=== PATIENT | female | born 1985 | race Caucasian/White ===

== ENCOUNTER 2017-11-14 08:29 | Inpatient (IN) | payer BC ==
[2017-11-14] MEDS ORDERED: Nalbuphine 20 MG/ML 1 ML Syringe IVPUSH PRN (08:52)
[2017-11-14] MEDS ORDERED: Ondansetron 4 MG/2 ML SDV IVPUSH PRN (08:52)
[2017-11-14] MEDS ORDERED: Sodium Chloride 0.9% 10 ML Syringe FLUSH PRN (08:52)
--- NOTE | 2017-11-14 08:54 | PCM.LDHP ---
L&D History of Present Illness - General Date of Service: 11/14/17 Admit Problem/Dx: Patient Status Order with Admit Dx/Problem 11/14/17 08:52 Patient Status [ADT] Routine Admission Diagnosis/Problem Admission Diagnosis/Problem Normal labor Source of Information: Patient History Limitations: Reports: No Limitations - History of Present Illness Introduction:: Patient is a 32 y/o at 39 2/7 wks who presents today in labor. Was seen last night for a labor check, but only 3 cm on serial assessments. Reports contractions picked up last night. When presented to L&D this AM was 4- 5 cm. Otherwise doing well. - Related Data Allergies/Adverse Reactions: Allergies Allergy/AdvReac Type Severity Reaction Status Date / Time amoxicillin Allergy Rash Verified 11/13/17 22:08 Home Medications: Home Meds Albuterol [Proventil HFA] 2 puff INH ASDIRECTED PRN 11/13/17 [History] Ferrous Sulfate [Iron] 325 mg PO ASDIRECTED 11/13/17 [History] Fluticasone/Salmeterol [Advair 250-50 Diskus] 1 each IH DAILY 11/13/17 [History] Loratadine [Claritin] 10 mg PO DAILY 11/13/17 [History] Omeprazole 20 mg PO DAILY 11/13/17 [History] Pnv No.95/Ferrous Fum/Folic AC [ Multivitamin Tablet] 1 each PO DAILY [History] Sertraline [Zoloft] 100 mg PO DAILY 11/13/17 [History] Past Medical History Respiratory History: Reports: Asthma (exercise induced) 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 (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): Psychiatric History: Reports: Depression - Past Surgical History HEENT Surgical History: Reports: Naso-Sinus Surgery Social & Family History - Tobacco Use Smoking Status *Q: Never Smoker - Alcohol Use Alcohol Use History: No - Recreational Drug Use Recreational Drug Use: No H&P Review of Systems - Review of Systems: Review Of Systems: See Below General: Reports: No Symptoms Pulmonary: Reports: No Symptoms Cardiovascular: Reports: No Symptoms Gastrointestinal: Reports: No Symptoms Genitourinary: Reports: No Symptoms Musculoskeletal: Reports: No Symptoms Psychiatric: Reports: No Symptoms Neurological: Reports: No Symptoms L&D Exam - Exam Exam: See Below - Vital Signs Weight: 117.934 kg - OB Specific Contraction Intensity: Moderate to Strong Movement: Active Heart Tones: Present Heart Tones per Min: 130 Heart Rate (FHR) Variability: Moderate (6-25 bmp) Presentation: Vertex - Cornejo Score Cornejo Score Cervix Position: Midposition Cornejo Score Consistency: Soft Cornejo Score Effacement: 51-70% Cornejo Score Dilation: 3-4 cm Cornejo Score 's Station: -2 Cornejo Score Total: 8 - Exam General: Alert, Oriented, Sedated Lungs: Clear to Auscultation, Normal Respiratory Effort Cardiovascular: Regular Rate, Regular Rhythm GI/Abdominal Exam: Soft, Non-Tender Genitourinary: Normal external exam Back Exam: Normal Inspection Extremities: Normal Inspection Skin: Warm, Dry, Intact - Patient Data Result Diagrams: 11/14/17 09:05 - Problem List (1) 39 weeks gestation of SNOMED Code(s): 78178289 ICD Code: Z3A.39 - 39 WEEKS GESTATION OF Status: Acute Current Visit: Yes (2) Normal labor SNOMED Code(s): 66493666 ICD Code: O80 - ENCOUNTER FOR FULL-TERM UNCOMPLICATED DELIVERY; Z37.9 - OUTCOME OF DELIVERY, UNSPECIFIED Status: Acute Current Visit: Yes (3) GBS (group B Streptococcus carrier), +RV culture, currently SNOMED Code(s): 4182168290965, 272782837, 4284810329166 ICD Code: O99.820 - STREPTOCOCCUS B CARRIER STATE COMPLICATING Status: Acute Current Visit: Yes (4) Depression SNOMED Code(s): 39658941 ICD Code: F32.9 - MAJOR DEPRESSIVE DISORDER, SINGLE EPISODE, UNSPECIFIED Status: Acute Current Visit: Yes Qualifiers: Major depression recurrence: single episode Active/Remission status: currently active Problem List Initiated/Reviewed/Updated: Yes Orders Last 24hrs: Active Orders 24 hr Category Date Time Status Patient Status [ADT] Routine ADT 11/14/17 08:52 Ordered Activity as Tolerated [RC] PFP Care 11/14/17 08:52 Ordered Communication Order [RC] ASDIRECTED Care 11/14/17 08:52 Ordered Heart Tones [RC] ASDIRECTED Care 11/14/17 08:53 Ordered Notify Provider [RC] PFP Care 11/14/17 08:52 Ordered Notify Provider [RC] PRN Care 11/14/17 08:52 Ordered Peripheral IV Care [RC] . DIRECTED Care 11/14/17 08:53 Ordered Vital Signs [RC] PER UNIT ROUTINE Care 11/14/17 08:52 Ordered Regular Diet [DIET] Diet 11/14/17 Breakfast Ordered CBC W/O DIFF,HEMOGRAM [HEME] Stat Lab 11/14/17 08:52 Ordered RAPID PLASMA REAGIN,RPR [CHEM] Stat Lab 11/14/17 08:52 Ordered TYPE AND SCREEN [BBK] Stat Lab 11/14/17 08:52 Ordered Lactated Ringers [Ringers, Lactated] 1,000 ml Med 11/14/17 09:00 Ordered IV ASDIRECTED Nalbuphine [Nubain] Med 11/14/17 08:52 Ordered 10 mg IVPUSH Q2H PRN Ondansetron [Zofran] Med 11/14/17 08:52 Ordered 4 mg IVPUSH Q4H PRN Oxytocin/Lactated Ringers [Pitocin in LR 10 Units/1,000 Med 11/14/17 09:00 Ordered ML] 10 unit in 1,000 ml IV .CONTINUOUS Sodium Chloride 0.9% [Saline Flush] Med 11/14/17 08:52 Ordered 10 ml FLUSH ASDIRECTED PRN ceFAZolin [Ancef] 1 gm Med 11/14/17 14:00 Ordered Premix Bag 1 bag IV Q8HR ceFAZolin [Ancef] 2 gm Med 11/14/17 08:52 Ordered Premix Bag 1 bag IV ONETIME Electronic Heart Tones Ext w TOCO [WOMSER] Oth 11/14/17 08:52 Ordered Routine Electronic Heart Tones Internal [WOMSER] Per Unit Oth 11/14/17 08:52 Ordered Routine Peripheral IV Insertion Adult [OM.PC] Routine Oth 11/14/17 08:52 Ordered Resuscitation Status Routine Resus Stat 11/14/17 08:52 Ordered Assessment/Plan Comment:: 32 y/o at 39 2/7 wks who presents in labor * CBC, T&S, RPR * GBS positive, will start Ancef for prophylaxis * Pain management per patient preference * Anticipate
[2017-11-14] MEDS ORDERED: ceFAZolin 2 GM in Premix Bag 1 BAG IV ONE (09:00)
[2017-11-14] MEDS ORDERED: Lactated Ringers 1,000 ML IV SCH (09:00)
[2017-11-14] MEDS ORDERED: Oxytocin/Lactated Ringers 10 UNIT/1,000 ML BAG IV SCH (09:00)
[2017-11-14] MEDS ORDERED: Lidocaine 1% 20 ML MDV INJECT ONE (16:40)
[2017-11-14] MEDS ORDERED: Lidocaine 1% 50 ML MDV ONE (16:40)
[2017-11-14] MEDS ORDERED: ceFAZolin 1 GM in Premix Bag 1 BAG IV SCH (17:00)
--- NOTE | 2017-11-14 17:03 | PCM.LDHP ---
L&D History of Present Illness - General Date of Service: 11/14/17 Admit Problem/Dx: Patient Status Order with Admit Dx/Problem - Related Data Allergies/Adverse Reactions: Allergies Allergy/AdvReac Type Severity Reaction Status Date / Time amoxicillin Allergy Rash Verified 11/13/17 22:08 Home Medications: Home Meds Albuterol [Proventil HFA] 2 puff INH ASDIRECTED PRN 11/13/17 [History] Ferrous Sulfate [Iron] 325 mg PO ASDIRECTED 11/13/17 [History] Fluticasone/Salmeterol [Advair 250-50 Diskus] 1 each IH DAILY 11/13/17 [History] Loratadine [Claritin] 10 mg PO DAILY 11/13/17 [History] Omeprazole 20 mg PO DAILY 11/13/17 [History] Pnv No.95/Ferrous Fum/Folic AC [ Multivitamin Tablet] 1 each PO DAILY [History] Sertraline [Zoloft] 100 mg PO DAILY 11/13/17 [History] Past Medical History HEENT History: Reports: Allergic Rhinitis, Sinusitis Respiratory History: Reports: Asthma (exercise induced) [employer]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: Psychiatric History: Reports: Depression - Past Surgical History HEENT Surgical History: Reports: Naso-Sinus Surgery Social & Family History - Family History Cardiac: Reports: Hypertension Musculoskeletal: Reports: Arthritis Endocrine/Metabolic: Reports: Diabetes, type II Hematologic: Reports: None Immunologic: Reports: None Dermatologic: Reports: None Oncologic: Reports: Breast - Tobacco Use Smoking Status *Q: Never Smoker Second Hand Smoke Exposure: No - Caffeine Use Caffeine Use: Reports: None - Recreational Drug Use Recreational Drug Use: No L&D Exam - Vital Signs Vital Signs: Last Vital Signs Temp Pulse 83 11/14/17 09:02 Resp BP Pulse Ox 98 11/14/17 08:42 Weight: 117.934 kg - OB Specific Contraction Intensity: Moderate to Strong Movement: Active Heart Tones: Present Heart Tones per Min: 130 Heart Rate (FHR) Variability: Moderate (6-25 bmp) Presentation: Vertex - Cornejo Score Cornejo Score Cervix Position: Midposition Cornejo Score Consistency: Soft Cornejo Score Effacement: 51-70% Cornejo Score Dilation: 3-4 cm Cornejo Score 's Station: -2 Cornejo Score Total: 8 - Patient Data Lab Results Last 24 hrs: Laboratory Results - last 24 hr 11/14/17 11/14/17 11/14/17 Range/Units 09:05 09:05 09:05 WBC 13.37 H (3.98-10.04) K/mm3 RBC 5.11 (3.98-5.22) M/mm3 Hgb 13.3 (11.2-15.7) gm/L Hct 40.3 (34.1-44.9) % MCV 78.9 L (79.4-94.8) fl MCH 26.0 (25.6-32.2) pg MCHC 33.0 (32.2-35.5) g/dl RDW Std Deviation 43.4 (36.4-46.3) fL Plt Count 417 H (182-369) K/mm3 MPV 9.7 (9.4-12.3) fl RPR Non-reactive (NONREACTIVE) Blood Type O POSITIVE Gel Antibody Screen Negative Result Diagrams: 11/14/17 09:05 - Problem List (1) 39 weeks gestation of SNOMED Code(s): 71696358 ICD Code: Z3A.39 - 39 WEEKS GESTATION OF Status: Acute Current Visit: Yes (2) Normal labor SNOMED Code(s): 04049486 ICD Code: O80 - ENCOUNTER FOR FULL-TERM UNCOMPLICATED DELIVERY; Z37.9 - OUTCOME OF DELIVERY, UNSPECIFIED Status: Acute Current Visit: Yes (3) GBS (group B Streptococcus carrier), +RV culture, currently SNOMED Code(s): 4787015353296, 727167794, 4484927580373 ICD Code: O99.820 - STREPTOCOCCUS B CARRIER STATE COMPLICATING Status: Acute Current Visit: Yes (4) Depression SNOMED Code(s): 81291624 ICD Code: F32.9 - MAJOR DEPRESSIVE DISORDER, SINGLE EPISODE, UNSPECIFIED Status: Acute Current Visit: Yes Qualifiers: Major depression recurrence: single episode Active/Remission status: currently active Orders Last 24hrs: Active Orders 24 hr Category Date Time Status Patient Status Manage Transfer [TRANSFER] Routine ADT 11/14/17 17:00 Ordered Patient Status [ADT] Routine ADT 11/14/17 08:52 Active Activity as Tolerated [RC] PFP Care 11/14/17 08:52 Active Communication Order [RC] ASDIRECTED Care 11/14/17 08:52 Active Heart Tones [RC] ASDIRECTED Care 11/14/17 08:53 Active Notify Provider [RC] PFP Care 11/14/17 08:52 Active Notify Provider [RC] PRN Care 11/14/17 08:52 Active Peripheral IV Care [RC] . DIRECTED Care 11/14/17 08:53 Active Vital Signs [RC] PER UNIT ROUTINE Care 11/14/17 08:52 Active Regular Diet [DIET] Diet 11/14/17 Breakfast Active PATIENT RETYPE [BBK] Stat Lab 11/14/17 09:05 Results TYPE AND SCREEN [BBK] Stat Lab 11/14/17 09:05 Results Lactated Ringers [Ringers, Lactated] 1,000 ml Med 11/14/17 09:00 Active IV ASDIRECTED Lidocaine 1% [Xylocaine 1%] Med 11/14/17 16:40 Once 50 ml INJECT ONETIME ONE Nalbuphine [Nubain] Med 11/14/17 08:52 Active 10 mg IVPUSH Q2H PRN Ondansetron [Zofran] Med 11/14/17 08:52 Active 4 mg IVPUSH Q4H PRN Oxytocin/Lactated Ringers [Pitocin in LR 10 Units/1,000 Med 11/14/17 09:00 Active ML] 10 unit in 1,000 ml IV .CONTINUOUS Pneumococcal Polyvalent-23 Vac [Pneumovax 23] Med 11/15/17 12:00 Once 0.5 ml SUBCUT .ONCE ONE Sertraline Med 11/15/17 09:00 Ordered 150 mg PO DAILY Sodium Chloride 0.9% [Saline Flush] Med 11/14/17 08:52 Active 10 ml FLUSH ASDIRECTED PRN ceFAZolin [Ancef] 1 gm Med 11/14/17 17:00 Active Premix Bag 1 bag IV Q8H Electronic Heart Tones Ext w TOCO [WOMSER] Oth 11/14/17 08:52 Ordered Routine Electronic Heart Tones Internal [WOMSER] Per Unit Oth 11/14/17 08:52 Ordered Routine Peripheral IV Insertion Adult [OM.PC] Routine Oth 11/14/17 08:52 Ordered Resuscitation Status Routine Resus Stat 11/14/17 08:52 Ordered Medication Orders Cefazolin Sodium/Dextrose 1 gm (/ Premix) 50 mls @ 100 mls/hr IV Q8H [facility] Lactated Ringer's (Ringers, Lactated) 1,000 mls @ 100 mls/hr IV ASDIRECTED [facility] Last Admin: 11/14/17 09:05 Dose: 100 mls/hr Oxytocin/Lactated Ringer's (Pitocin In Lr 10 Units/1,000 Ml) 10 unit in 1,000 mls @ 500 mls/hr IV .CONTINUOUS [facility] Lidocaine HCl (Xylocaine 1%) 50 ml INJECT ONETIME ONE Stop: 11/14/17 16:41 Nalbuphine HCl (Nubain) 10 mg IVPUSH Q2H PRN PRN Reason: Pain (moderate 4-6) Last Admin: 11/14/17 11:50 Dose: 10 mg Non-Formulary Medication (Sertraline) 150 mg PO DAILY [facility] Ondansetron HCl (Zofran) 4 mg IVPUSH Q4H PRN PRN Reason: Nausea/Vomiting Pneumococcal Polyvalent Vaccine (Pneumovax 23) 0.5 ml SUBCUT .ONCE ONE Stop: 11/15/17 12:01 Sodium Chloride (Saline Flush) 10 ml FLUSH ASDIRECTED PRN PRN Reason: Keep Vein Open Assessment/Plan Comment:: 32 y/o at 39 2/7 wks who presents in labor * CBC, T&S, RPR * GBS positive, will start Ancef for prophylaxis * Pain management per patient preference * Anticipate
--- NOTE | 2017-11-14 17:12 | PCM.DEL ---
L & D Note - General Info Date of Service: 11/14/17 - Delivery Note Labor: Spontaneous Delivery Outcome: Livebirth Delivery Method: Spontaneous Vaginal Delivery-Single Delivery Mode: Spontaneous Presentation: Right Occiput Anterior (DORIAN) Nuchal Cord: Present Anesthesia Type: None Amniotic Fluid Description: Clear Episiotomy Type: None Laceration: 2nd Degree Suture type: Vicryl Suture size: 3-0 Placenta: Intact, Spontaneous Cord: 3 Vessels Estimated Blood Loss: 300 Score 1 min: 7 Score 5 min: 9 Delivery Comments (Free Text/Narrative):: Patient found to be complete and began pushing. With maternal pushing effort head delivered from an DORIAN presentation. Nuchal cord present, but not reduced as delivered quickly. With gentle downward traction the shoulders and body delivered. placed on maternal abdomen. Cord clamped and cut. Cord blood obtained. Placenta allowed time to separate and expelled intact. Inspection of the perineum showed a 2nd degree laceration which was repaired with a 3-0 vicryl. - General Info Date of Service: 11/14/17 - Patient Data Vitals - Most Recent: Last Vital Signs Temp Pulse 83 11/14/17 09:02 Resp BP Pulse Ox 98 11/14/17 08:42 Weight - Most Recent: 117.934 kg I&O - Last 24 Hours: Intake & Output 11/14/17 11/14/17 11/14/17 06:59 14:59 22:59 Intake Total 600 Balance 600 Lab Results Last 24 Hours: Laboratory Results - last 24 hr 11/14/17 11/14/17 11/14/17 Range/Units 09:05 09:05 09:05 WBC 13.37 H (3.98-10.04) K/mm3 RBC 5.11 (3.98-5.22) M/mm3 Hgb 13.3 (11.2-15.7) gm/L Hct 40.3 (34.1-44.9) % MCV 78.9 L (79.4-94.8) fl MCH 26.0 (25.6-32.2) pg MCHC 33.0 (32.2-35.5) g/dl RDW Std Deviation 43.4 (36.4-46.3) fL Plt Count 417 H (182-369) K/mm3 MPV 9.7 (9.4-12.3) fl RPR Non-reactive (NONREACTIVE) Blood Type O POSITIVE Gel Antibody Screen Negative Med Orders - Current: Current Medications Cefazolin Sodium/Dextrose 1 gm (/ Premix) 50 mls @ 100 mls/hr IV Q8H [facility] Lactated Ringer's (Ringers, Lactated) 1,000 mls @ 100 mls/hr IV ASDIRECTED [facility] Last Admin: 11/14/17 09:05 Dose: 100 mls/hr Oxytocin/Lactated Ringer's (Pitocin In Lr 10 Units/1,000 Ml) 10 unit in 1,000 mls @ 500 mls/hr IV .CONTINUOUS [facility] Nalbuphine HCl (Nubain) 10 mg IVPUSH Q2H PRN PRN Reason: Pain (moderate 4-6) Last Admin: 11/14/17 11:50 Dose: 10 mg Non-Formulary Medication (Sertraline) 150 mg PO DAILY [facility] Ondansetron HCl (Zofran) 4 mg IVPUSH Q4H PRN PRN Reason: Nausea/Vomiting Pneumococcal Polyvalent Vaccine (Pneumovax 23) 0.5 ml SUBCUT .ONCE ONE Stop: 11/15/17 12:01 Sodium Chloride (Saline Flush) 10 ml FLUSH ASDIRECTED PRN PRN Reason: Keep Vein Open Discontinued Medications Cefazolin Sodium/Dextrose 2 gm (/ Premix) 50 mls @ 100 mls/hr IV ONETIME ONE Stop: 11/14/17 09:29 Last Admin: 11/14/17 09:24 Dose: 100 mls/hr Lidocaine HCl (Xylocaine 1%) Confirm Administered Dose 50 ml .ROUTE .STK-MED ONE Stop: 11/14/17 16:41 Lidocaine HCl (Xylocaine 1%) 50 ml INJECT ONETIME ONE Stop: 11/14/17 16:41 - Problem List & Annotations (1) 39 weeks gestation of SNOMED Code(s): 25327412 Code(s): Z3A.39 - 39 WEEKS GESTATION OF Status: Acute Current Visit: Yes (2) Normal labor SNOMED Code(s): 64429444 Code(s): O80 - ENCOUNTER FOR FULL-TERM UNCOMPLICATED DELIVERY; Z37.9 - OUTCOME OF DELIVERY, UNSPECIFIED Status: Acute Current Visit: Yes (3) GBS (group B Streptococcus carrier), +RV culture, currently SNOMED Code(s): 6236982129824, 170002016, 9682508330842 Code(s): O99.820 - STREPTOCOCCUS B CARRIER STATE COMPLICATING Status: Acute Current Visit: Yes (4) Depression SNOMED Code(s): 69884912 Code(s): F32.9 - MAJOR DEPRESSIVE DISORDER, SINGLE EPISODE, UNSPECIFIED Status: Acute Current Visit: Yes Qualifiers: Major depression recurrence: single episode Active/Remission status: currently active (5) Vaginal delivery SNOMED Code(s): 288843245 Code(s): O80 - ENCOUNTER FOR FULL-TERM UNCOMPLICATED DELIVERY Status: Acute Current Visit: Yes - Problem List Review Problem List Initiated/Reviewed/Updated: Yes - My Orders Last 24 Hours: My Active Orders 11/14/17 08:52 Patient Status [ADT] Routine Activity as Tolerated [RC] PFP Communication Order [RC] ASDIRECTED Notify Provider [RC] PFP Notify Provider [RC] PRN Vital Signs [RC] PER UNIT ROUTINE Nalbuphine [Nubain] 10 mg IVPUSH Q2H PRN Ondansetron [Zofran] 4 mg IVPUSH Q4H PRN Sodium Chloride 0.9% [Saline Flush] 10 ml FLUSH ASDIRECTED PRN Electronic Heart Tones Ext w TOCO [WOMSER] Routine Electronic Heart Tones Internal [WOMSER] Per Unit Routine Peripheral IV Insertion Adult [OM.PC] Routine Resuscitation Status Routine 11/14/17 08:53 Heart Tones [RC] ASDIRECTED Peripheral IV Care [RC] . DIRECTED 11/14/17 09:00 Lactated Ringers [Ringers, Lactated] 1,000 ml IV ASDIRECTED Oxytocin/Lactated Ringers [Pitocin in LR 10 Units/1,000 ML] 10 unit in 1,000 ml IV .CONTINUOUS 11/14/17 09:05 PATIENT RETYPE [BBK] Stat TYPE AND SCREEN [BBK] Stat 11/14/17 17:00 Patient Status Manage Transfer [TRANSFER] Routine ceFAZolin [Ancef] 1 gm Premix Bag 1 bag IV Q8H 11/14/17 Breakfast Regular Diet [DIET] 11/15/17 09:00 Sertraline 150 mg PO DAILY 06/28/18 12:00 Pneumococcal Polyvalent-23 Vac [Pneumovax 23] 0.5 ml SUBCUT .ONCE ONE - Assessment Assessment:: 32 y/o G2 now P2002 PPD#0 from at 39 2/7 wks - Plan Plan:: * Routine cares * Encourage breast feeding * Discharge home in 1-2 days
[2017-11-14] MEDS ORDERED: Witch Hazel Medicated Pads 100/Jar TOP PRN (17:26)
[2017-11-14] MEDS ORDERED: Ibuprofen 600 MG Tab PO PRN (17:26)
[2017-11-14] MEDS ORDERED: Acetaminophen 325 MG Tab PO PRN (17:26)
[2017-11-14] MEDS ORDERED: Lanolin 100% Cream 7 GM Tube TOP PRN (17:26)
[2017-11-14] MEDS ORDERED: Benzocaine/Menthol 20%-0.5% Spray 56 GM Canister TOP PRN (17:26)
[2017-11-14] MEDS: Docusate Sodium 100 MG Cap PO PRN (18:38)
--- NOTE | 2017-11-15 07:39 | PCM.PNPP ---
- General Info Date of Service: 11/15/17 Functional Status: Reports: Pain Controlled, Tolerating Diet, Ambulating, Urinating - Review of Systems General: Reports: No Symptoms Pulmonary: Reports: No Symptoms Cardiovascular: Reports: No Symptoms Gastrointestinal: Reports: No Symptoms Genitourinary: Reports: No Symptoms Musculoskeletal: Reports: No Symptoms Neurological: Reports: No Symptoms - Patient Data Vital Signs - Most Recent: Last Vital Signs Temp 36.4 C 11/15/17 02:33 Pulse 80 11/15/17 02:33 Resp 15 11/15/17 02:33 BP 121/68 11/15/17 02:33 Pulse Ox 99 11/15/17 02:33 Weight - Most Recent: 117.934 kg I&O - Last 24 Hours: Intake & Output 11/14/17 11/15/17 11/15/17 22:59 06:59 14:59 Intake Total 700 Balance 700 Lab Results - Last 24 Hours: Laboratory Results - last 24 hr 11/14/17 11/14/17 11/14/17 Range/Units 09:05 09:05 09:05 WBC 13.37 H (3.98-10.04) K/mm3 RBC 5.11 (3.98-5.22) M/mm3 Hgb 13.3 (11.2-15.7) gm/L Hct 40.3 (34.1-44.9) % MCV 78.9 L (79.4-94.8) fl MCH 26.0 (25.6-32.2) pg MCHC 33.0 (32.2-35.5) g/dl RDW Std Deviation 43.4 (36.4-46.3) fL Plt Count 417 H (182-369) K/mm3 MPV 9.7 (9.4-12.3) fl RPR Non-reactive (NONREACTIVE) Blood Type O POSITIVE Gel Antibody Screen Negative Med Orders - Current: Current Medications Acetaminophen (Tylenol) 650 mg PO Q4H PRN PRN Reason: mild pain or fever Benzocaine/Menthol (Dermoplast Pain Relief [place]) 0 gm TOP ASDIRECTED PRN PRN Reason: Perineal Comfort Measure Last Admin: 11/14/17 18:38 Dose: 1 can Docusate Sodium (Colace) 100 mg PO BID PRN PRN Reason: Constipation Last Admin: 11/14/17 18:38 Dose: 100 mg Emollient Ointment (Lansinoh Hpa) 0 gm TOP ASDIRECTED PRN PRN Reason: Sore Nipples Ibuprofen (Motrin) 600 mg PO Q6H PRN PRN Reason: Mild pain or fever Last Admin: 11/14/17 18:38 Dose: 600 mg Sertraline HCl (Zoloft) 150 mg PO DAILY [facility] (Tucks) 1 pad TOP ASDIRECTED PRN PRN Reason: Hemorrhoid pain Last Admin: 11/14/17 18:37 Dose: 1 canister Discontinued Medications Cefazolin Sodium/Dextrose 2 gm (/ Premix) 50 mls @ 100 mls/hr IV ONETIME ONE Stop: 11/14/17 09:29 Last Admin: 11/14/17 09:24 Dose: 100 mls/hr Cefazolin Sodium/Dextrose 1 gm (/ Premix) 50 mls @ 100 mls/hr IV Q8H [facility] Last Admin: 11/14/17 17:07 Dose: Not Given Lactated Ringer's (Ringers, Lactated) 1,000 mls @ 100 mls/hr IV ASDIRECTED [facility] Last Admin: 11/14/17 09:05 Dose: 100 mls/hr Oxytocin/Lactated Ringer's (Pitocin In Lr 10 Units/1,000 Ml) 10 unit in 1,000 mls @ 500 mls/hr IV .CONTINUOUS [facility] Last Admin: 11/14/17 16:43 Dose: 500 mls/hr Lidocaine HCl (Xylocaine 1%) Confirm Administered Dose 50 ml .ROUTE .STK-MED ONE Stop: 11/14/17 16:41 Last Admin: 11/14/17 17:06 Dose: 15 ml Lidocaine HCl (Xylocaine 1%) 50 ml INJECT ONETIME ONE Stop: 11/14/17 16:41 Last Admin: 11/14/17 17:27 Dose: Not Given Nalbuphine HCl (Nubain) 10 mg IVPUSH Q2H PRN PRN Reason: Pain (moderate 4-6) Last Admin: 11/14/17 11:50 Dose: 10 mg Ondansetron HCl (Zofran) 4 mg IVPUSH Q4H PRN PRN Reason: Nausea/Vomiting Pneumococcal Polyvalent Vaccine (Pneumovax 23) 0.5 ml SUBCUT .ONCE ONE Stop: 11/15/17 12:01 Sodium Chloride (Saline Flush) 10 ml FLUSH ASDIRECTED PRN PRN Reason: Keep Vein Open - Infant Interaction Disposition, : [place] in Room with Family Infant Interaction: Holding Infant Feeding: Breastfed ; Nursed Well Support Person: - Recovery Exam Fundal Tone: Firm Fundal Level: At Umbilicus Fundal Placement: Midline Lochia Amount: Small Lochia Color: Rubra/Red Bladder Status: Voiding Urinary Elimination: Voided - Exam General: Alert, Oriented, Cooperative GI/Abdominal Exam: Soft, Non-Tender Extremities: Normal Inspection Skin: Warm, Dry, Intact - Problem List & Annotations (1) 39 weeks gestation of SNOMED Code(s): 74242665 Code(s): Z3A.39 - 39 WEEKS GESTATION OF Status: Acute Current Visit: Yes (2) Normal labor SNOMED Code(s): 57604886 Code(s): O80 - ENCOUNTER FOR FULL-TERM UNCOMPLICATED DELIVERY; Z37.9 - OUTCOME OF DELIVERY, UNSPECIFIED Status: Acute Current Visit: Yes (3) GBS (group B Streptococcus carrier), +RV culture, currently SNOMED Code(s): 7627241404157, 315889812, 3977769632143 Code(s): O99.820 - STREPTOCOCCUS B CARRIER STATE COMPLICATING Status: Acute Current Visit: Yes (4) Depression SNOMED Code(s): 33495624 Code(s): F32.9 - MAJOR DEPRESSIVE DISORDER, SINGLE EPISODE, UNSPECIFIED Status: Acute Current Visit: Yes Qualifiers: Major depression recurrence: single episode Active/Remission status: currently active (5) Vaginal delivery SNOMED Code(s): 804400195 Code(s): O80 - ENCOUNTER FOR FULL-TERM UNCOMPLICATED DELIVERY Status: Acute Current Visit: Yes - Problem List Review Problem List Initiated/Reviewed/Updated: Yes - My Orders Last 24 Hours: My Active Orders 11/14/17 08:52 Vital Signs [RC] PER UNIT ROUTINE Resuscitation Status Routine 11/14/17 17:26 Activity as Tolerated [RC] PER UNIT ROUTINE Vital Signs [RC] 03,09,15,21 Acetaminophen [Tylenol] 650 mg PO Q4H PRN Benzocaine/Menthol [Dermoplast Pain Relief [place]] See Dose Instructions TOP ASDIRECTED PRN Docusate Sodium [Colace] 100 mg PO BID PRN Ibuprofen [Motrin] 600 mg PO Q6H PRN Lanolin [Lansinoh HPA] See Dose Instructions TOP ASDIRECTED PRN [place] [Tucks] 1 pad TOP ASDIRECTED PRN Assess Lochia [WOMSER] Per Unit Routine Assess Uterine Involution [WOMSER] Per Unit Routine Breast Pump [WOMSER] Per Unit Routine Heat Therapy [OM.PC] PRN Ice Therapy [OM.PC] Per Unit Routine Perineal Care [OM.PC] Per Unit Routine Peripheral IV Discontinue [OM.PC] Routine Sitz Bath [OM.PC] Per Unit Routine 11/14/17 Dinner Regular Diet [DIET] 11/15/17 09:00 Sertraline [Zoloft] 150 mg PO DAILY 11/15/17 17:26 Heat Therapy [OM.PC] PRN - Assessment Assessment:: 32 y/o G2 now P2002 PPD#1 from at 39 2/7 wks - Plan Plan:: * Routine cares * Encourage breast feeding * Discharge home today vs tomorrow pending patient preference
[2017-11-15] MEDS ORDERED: Sertraline 50 MG Tab PO SCH (09:00)
[2017-11-15] MEDS: Docusate Sodium 100 MG Cap PO PRN (09:48)
[2017-11-15] MEDS ORDERED: Pneumococcal Polyvalent-23 Vaccine 0.5 ML SDV SUBCUT ONE (12:00)
--- NOTE | 2017-11-15 17:21 | PCM.DCSUM1 ---
Discharge Summary - Discharge Data Discharge Date: 11/15/17 Discharge Disposition: Home, Self-Care 01 Condition: Good - Discharge Diagnosis/Problem(s) (1) 39 weeks gestation of SNOMED Code(s): 73943598 ICD Code: Z3A.39 - 39 WEEKS GESTATION OF Status: Acute Current Visit: Yes (2) Normal labor SNOMED Code(s): 19133636 ICD Code: O80 - ENCOUNTER FOR FULL-TERM UNCOMPLICATED DELIVERY; Z37.9 - OUTCOME OF DELIVERY, UNSPECIFIED Status: Acute Current Visit: Yes (3) GBS (group B Streptococcus carrier), +RV culture, currently SNOMED Code(s): 9628560175445, 102645737, 4613171418703 ICD Code: O99.820 - STREPTOCOCCUS B CARRIER STATE COMPLICATING Status: Acute Current Visit: Yes (4) Depression SNOMED Code(s): 37078746 ICD Code: F32.9 - MAJOR DEPRESSIVE DISORDER, SINGLE EPISODE, UNSPECIFIED Status: Acute Current Visit: Yes Qualifiers: Major depression recurrence: single episode Active/Remission status: currently active (5) Vaginal delivery SNOMED Code(s): 942719346 ICD Code: O80 - ENCOUNTER FOR FULL-TERM UNCOMPLICATED DELIVERY Status: Acute Current Visit: Yes - Patient Summary/Data Complications: None Consults: None Recommended Follow-up Testing/Procedures: Follow up in 3-6 weeks for check Hospital Course: 32 y/o at 39 2/7 wks presented in labor. She progressed well to complete dilation. Underwent an uncomplicated . See delivery note for full details. she did well and was discharged home on PPD#1 - Patient Instructions Diet: Regular Diet as Tolerated Activity: As Tolerated Activity, Other: Pelvic Rest for 6 weeks Driving: May Drive Today Showering/Bathing: May Shower Notify Provider of: Fever, Increased Pain, Swelling and Redness, Drainage, Nausea and/or Vomiting - Discharge Plan Prescriptions/Med Rec: Ibuprofen 600 mg PO Q6H PRN #60 tablet PRN Reason: Pain Home Medications: Home Meds Albuterol [Proventil HFA] 2 puff INH ASDIRECTED PRN 11/13/17 [History] Loratadine [Claritin] 10 mg PO DAILY 11/13/17 [History] Pnv No.95/Ferrous Fum/Folic AC [ Multivitamin Tablet] 1 each PO DAILY [History] Docusate Sodium [Colace] 100 mg PO BID PRN cap 11/15/17 [Rx] Ibuprofen 600 mg PO Q6H PRN #60 tablet 11/15/17 [Rx] Sertraline [Zoloft] 150 mg PO DAILY tablet 11/15/17 [Rx] Referrals: Karuna Palacios MD [Primary Care Provider] - (3-6 weeks for check ) - Discharge Summary/Plan Comment DC Time >30 min.: No - Patient Data Vitals - Most Recent: Last Vital Signs Temp 36.7 C 11/15/17 09:36 Pulse 98 11/15/17 09:36 Resp 16 11/15/17 09:36 BP 122/69 11/15/17 09:36 Pulse Ox 98 11/15/17 09:36 Weight - Most Recent: 117.934 kg I&O - Last 24 hours: Intake & Output 11/15/17 11/15/17 11/15/17 06:59 14:59 22:59 Intake Total 100 Balance 100 Med Orders - Current: Current Medications Acetaminophen (Tylenol) 650 mg PO Q4H PRN PRN Reason: mild pain or fever Benzocaine/Menthol (Dermoplast Pain Relief [place]) 0 gm TOP ASDIRECTED PRN PRN Reason: Perineal Comfort Measure Last Admin: 11/14/17 18:38 Dose: 1 can Docusate Sodium (Colace) 100 mg PO BID PRN PRN Reason: Constipation Last Admin: 11/15/17 09:48 Dose: 100 mg Emollient Ointment (Lansinoh Hpa) 0 gm TOP ASDIRECTED PRN PRN Reason: Sore Nipples Ibuprofen (Motrin) 600 mg PO Q6H PRN PRN Reason: Mild pain or fever Last Admin: 11/14/17 18:38 Dose: 600 mg Sertraline HCl (Zoloft) 150 mg PO DAILY KULWANT Last Admin: 11/15/17 09:48 Dose: 150 mg Witch Ebony (Tucks) 1 pad TOP ASDIRECTED PRN PRN Reason: Hemorrhoid pain Last Admin: 11/14/17 18:37 Dose: 1 canister Discontinued Medications Cefazolin Sodium/Dextrose 2 gm (/ Premix) 50 mls @ 100 mls/hr IV ONETIME ONE Stop: 11/14/17 09:29 Last Admin: 11/14/17 09:24 Dose: 100 mls/hr Cefazolin Sodium/Dextrose 1 gm (/ Premix) 50 mls @ 100 mls/hr IV Q8H [facility] Last Admin: 11/14/17 17:07 Dose: Not Given Lactated Ringer's (Ringers, Lactated) 1,000 mls @ 100 mls/hr IV ASDIRECTED KULWANT Last Admin: 11/14/17 09:05 Dose: 100 mls/hr Oxytocin/Lactated Ringer's (Pitocin In Lr 10 Units/1,000 Ml) 10 unit in 1,000 mls @ 500 mls/hr IV .CONTINUOUS KULWANT Last Admin: 11/14/17 16:43 Dose: 500 mls/hr Lidocaine HCl (Xylocaine 1%) Confirm Administered Dose 50 ml .ROUTE .STK-MED ONE Stop: 11/14/17 16:41 Last Admin: 11/14/17 17:06 Dose: 15 ml Lidocaine HCl (Xylocaine 1%) 50 ml INJECT ONETIME ONE Stop: 11/14/17 16:41 Last Admin: 11/14/17 17:27 Dose: Not Given Nalbuphine HCl (Nubain) 10 mg IVPUSH Q2H PRN PRN Reason: Pain (moderate 4-6) Last Admin: 11/14/17 11:50 Dose: 10 mg Ondansetron HCl (Zofran) 4 mg IVPUSH Q4H PRN PRN Reason: Nausea/Vomiting Pneumococcal Polyvalent Vaccine (Pneumovax 23) 0.5 ml SUBCUT .ONCE ONE Stop: 11/15/17 12:01 Last Admin: 11/15/17 14:01 Dose: 0.5 ml Sodium Chloride (Saline Flush) 10 ml FLUSH ASDIRECTED PRN PRN Reason: Keep Vein Open
== END 2017-11-15 18:45 | disposition home or self-care (01) | DRG 560 ==
LOC: JD.OBCHECK 08:29 → JD.OB 08:31 → JD.OBCHECK 08:52 → JD.OB 08:52 → OBSVTOIN 16:37 → JD.OB 16:38
PROVIDERS: ADMIT Obstetrics & Gynecology; ATTEND Obstetrics & Gynecology
PROC: 10E0XZZ Delivery of Products of Conception, External Approach (ICD-10-PCS; principal; 2017-11-14)
PROC: 6A550ZT Pheresis of Cord Blood Stem Cells, Single (ICD-10-PCS; 2017-11-14)
PROC: 0KQM0ZZ Repair Perineum Muscle, Open Approach (ICD-10-PCS; 2017-11-14)
PROC: 3E0234Z Introduction of Serum, Toxoid and Vaccine into Muscle, Percutaneous Approach (ICD-10-PCS; 2017-11-15)
DX: O99.824 Streptococcus B carrier state complicating childbirth (principal); O70.1 Second degree perineal laceration during delivery; O69.81X0 Labor and delivery complicated by cord around neck, without compression, not applicable or unspecified; Z3A.39 39 weeks gestation of pregnancy; Z37.0 Single live birth; Z23 Encounter for immunization; Z88.1 Allergy status to other antibiotic agents; O99.344 Other mental disorders complicating childbirth; F32.9 Major depressive disorder, single episode, unspecified
CPT/HCPCS: 36415; 59025; 59300; 59409; 85027; 86592; 86850; 86900; 86901; 90732; A9270-GY; G0009; J0690; J2300; J2590; J7120